=== PATIENT | male | born 1975 | race African-American/Black ===

== ENCOUNTER 2021-06-10 07:00 | Emergency (ER) | payer BC ==
[~2021-06-10] VITALS: Ht 188 cm; Wt 110.0 kg
--- NOTE | 2021-06-10 07:03 | PHYS DOC ---
Adult General HPI HPI Patient is a 45-year-old male who presents with epigastric abdominal pain, 7 out of 10, sharp and burning in nature, relatively constant that started last night and has kept him up all night. States he did take a heartburn medicine this morning as he does get heartburn. Denies any recent traumas, travels, illnesses , fevers, chest pain, shortness of breath, nausea, vomiting, diarrhea, dysuria, hematuria, blood in the stool. Denies any known ill contacts. Denies any alcohol or drug use. States he is making urine and stool normally for him. States he is been eating and drinking normally for him. Review of Systems Review of Systems Review of systems otherwise unremarkable except noted in HPI Physical Exam Physical Exam Constitutional: Well developed, well nourished, no acute distress, non-toxic appearance. [] HENT: Normocephalic, atraumatic, oropharynx moist, no oral exudates, nose normal. [] Eyes: conjunctiva normal, no discharge. [] Neck: Normal range of motion, no tenderness, supple, no stridor. [] Cardiovascular:Heart rate regular rhythm, no murmur [] Lungs & Thorax: Bilateral breath sounds clear to auscultation [] Abdomen: soft, epigastric tenderness, no rebound, no guarding, no masses, no pulsatile masses. [] Skin: Warm, dry, no erythema, no rash. [] Back: no CVA tenderness. [] Extremities: No tenderness, no cyanosis, no clubbing, ROM intact, no edema. [] Neurologic: Alert and oriented X 3, no focal deficits noted. [] Psychologic: Affect normal, judgement normal, mood normal. [] EKG EKG [] Radiology/Procedures Radiology/Procedures [] CT ABDOMEN+PELVIS WO History: Sharp epigastric pain this morning. Comparison: None. Technique: Noncontrast CT of the abdomen and pelvis. Findings: No airspace consolidation. There is a 3 mm left fissural nodule, likely benign fissural lymph node. There is a 1.7 cm hypodensity in the right hepatic lobe (axial image 31). The gallbladder, pancreas, spleen, adrenal glands, and kidneys are unremarkable. The bladder is decompressed. The prostate is within normal limits. The stomach, small bowel and appendix are within normal limits. Mild stool within the colon. Minimal colonic diverticula. No intra-abdominal free air or free fluid. No inflammatory fat stranding. Minimal atherosclerotic calcification in the aorta and iliac arteries. No abdominopelvic adenopathy. There is a left inguinal hernia which contains a small amount of fluid. This tracks through the internal os adjacent to a loop of small bowel however continuity is not identified. There is no proximal small bowel dilatation. Degenerative disc and facet disease at L4-L5 with bilateral neural foraminal narrowing. Partial sacralization of the L5 vertebral body with pseudoarticulation of the left transverse process and rudimentary L5-S1 disc. Impression: 1. No acute inflammatory findings in the abdomen and pelvis. 2. Indeterminate right hepatic 1.7 cm hypodensity, incompletely evaluated on noncontrast exam. Recommend hepatic MRI with contrast for further characterization. 3. Left inguinal hernia containing small amount of fluid. This is favored to represent peritoneal fluid, however this tracks closely to adjacent small bowel loops at the internal ring and the herniated small bowel loop which completely decompresses at the internal ring is thought to be less likely. No evidence of small bowel obstruction proximally. Correlate with symptoms. ------ Exposure: One or more of the following individualized dose reduction techniques were utilized for this examination: 1. Automated exposure control 2. Adjustment of the mA and/or kV according to patient size 3. Use of iterative reconstruction technique. Electronically signed by: Lloyd Ortiz MD (06/10/2021 8:04 AM) [id number] Heart Score C/O Chest Pain: No Risk Factors: Risk Factors: DM, Current or recent (<one month) smoker, HTN, HLP, family history of CAD, obesity. Risk Scores: Risk Factors: DM, Current or recent (<one month) smoker, HTN, HLP, family history of CAD, obesity. Course & Med Decision Making Course & Med Decision Making Patient is a 45-year-old male who presents with epigastric abdominal pain Vital signs not concerning. Physical exam noted above. Given GI cocktail. Laboratory analysis not concerning. Urinalysis not concerning. No acute findin gs on CT. On reassessment patient feeling much better and ready to be discharged home. Given work note for today as requested. Advised to follow-up this morning with his primary care physician to set up a follow-up appointment. Gave return precautions to the ED. Patient grateful, verbalized understanding and agreed with plan of discharge. Dragon Disclaimer Dragon Disclaimer This electronic medical record was generated, in whole or in part, using a voice recognition dictation system. Departure Departure: Impression: Primary Impression: Abdominal pain Disposition: HOME / SELF CARE / HOMELESS Condition: GOOD Referrals: PCP,NO (PCP) HOLLEY JERNIGAN MD Patient Instructions: Abdominal Pain (Nonspecific), Diet for Gastroesophageal Reflux Disease, Adult, Gastroesophageal Reflux Disease, Adult Additional Instructions: Thank you for coming into the emergency department today and allowing us to take care of you. Please read the attached information carefully to go back over some of the things we discussed. Over the next couple of days please eat a light clear diet. Please take your heartburn medicine daily. You are given contact information for local primary care physician to establish care as you are new in the area. Please be sure to drink plenty of fluids. PACO VILLELA MD Jun 10, 2021 07:03
[2021-06-10] MEDS ORDERED: LIDO:MAALOX 1:1 20 ML SINGLE DOSE. PO ONE (07:15)
--- NOTE | 2021-06-10 08:06 | RAD ---
CT ABDOMEN+PELVIS WO History: Sharp epigastric pain this morning. Comparison: None. Technique: Noncontrast CT of the abdomen and pelvis. Findings: No airspace consolidation. There is a 3 mm left fissural nodule, likely benign fissural lymph node. There is a 1.7 cm hypodensity in the right hepatic lobe (axial image 31). The gallbladder, pancreas, spleen, adrenal glands, and kidneys are unremarkable. The bladder is decompressed. The prostate is wi thin normal limits. The stomach, small bowel and appendix are within normal limits. Mild stool within the colon. Minimal colonic diverticula. No intra-abdominal free air or free fluid. No inflammatory fat stranding. Minima l atherosclerotic calcification in the aorta and iliac arteries. No abdominopelvic adenopathy. There is a left inguinal hernia which contains a small amount of fluid. This tracks through the inter nal os adjacent to a loop of small bowel however continuity is not identified. There is no proximal s mall bowel dilatation. Degenerative disc and facet disease at L4-L5 with bilateral neural foraminal n arrowing. Partial sacralization of the L5 vertebral body with pseudoarticulation of the left transver se process and rudimentary L5-S1 disc. Impression: 1. No acute inflammatory findings in the abdomen and pelvis. 2. Indeterminate right hepatic 1.7 cm hypodensity, incompletely evaluated on noncontrast exam. Recom mend hepatic MRI with contrast for further characterization. 3. Left inguinal hernia containing small amount of fluid. This is favored to represent peritoneal fl uid, however this tracks closely to adjacent small bowel loops at the internal ring and the herniated small bowel loop which completely decompresses at the internal ring is thought to be less likely. No evidence of small bowel obstruction proximally. Correlate with symptoms. ------ Exposure: One or more of the following individualized dose reduction techniques were utilized for thi s examination: 1. Automated exposure control 2. Adjustment of the mA and/or kV according to patient size 3. Use of iterative reconstruction technique. Electronically signed by: Lloyd Ortiz MD (06/10/2021 8:04 AM) [id number]
[2021-06-10] MEDS ORDERED: PANTOPRAZOLE 40 MG TABLET. PO ONE (08:15)
[2021-06-10] MEDS ORDERED: oxyCODONE/APAP 5/325 1 TAB TABLET PO ONE (08:15)
[2021-06-10 08:23] LABS: BASO % 1 % (0-3); EOS # 0.1 x10^3/uL (0.0-0.7); EOS % 1 % (0-3); HEMATOCRIT 42.7 % (39.0-53.0); HEMOGLOBIN 13.9 g/dL (13.0-17.5); LYMPH # 1.7 x10^3/uL (1.0-4.8); LYMPH % 27 % (24-48); MEAN CORPUSCULAR HEMOGLOBIN 31 pg (25-35); MEAN CORPUSCULAR HGB CONC 33 g/dL (31-37); MEAN CORPUSCULAR VOLUME 94 fL (79-100); MONO # 0.9 x10^3/uL (0.0-1.1); MONO % 15 % (0-9); NEUT # 3.6 x10^3uL (1.8-7.7); NEUT % 57 % (31-73); PLATELET COUNT 225 x10^3/uL (140-400); RED BLOOD COUNT 4.53 x10^6/uL (4.30-5.70); RED CELL DISTRIBUTION WIDTH 13.6 % (11.5-14.5); WHITE BLOOD COUNT 6.3 x10^3/uL (4.0-11.0)
[2021-06-10 08:33] LABS: CALCIUM 8.8 mg/dL (8.5-10.1); CREATININE 0.8 mg/dL (0.7-1.3); GFR 126.5; POTASSIUM 4.6 mmol/L (3.5-5.1)
[2021-06-10 08:37] LABS: ALBUMIN 3.8 g/dL (3.4-5.0); ALBUMIN/GLOBULIN RATIO 1.3 (1.0-1.7); TOTAL BILIRUBIN 0.3 mg/dL (0.2-1.0); TOTAL PROTEIN 6.8 g/dL (6.4-8.2)
[2021-06-10 08:45] LABS: BILIRUBIN,URINE NEG (NEG); CLARITY,URINE CLEAR; COLOR,URINE YELLOW; GLUCOSE,URINE NEG (NEG); NITRITE,URINE NEG (NEG)
[2021-06-10 08:46] LABS: BACTERIA,URINE 0 /HPF (0-FEW); SQUAMOUS EPITHELIAL CELL,UR MOD /LPF
[2021-06-10 08:55] VITALS: BP 120/78
--- NOTE | 2021-06-10 18:51 | EKG ---
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
== END 2021-06-10 09:05 | disposition home or self-care (01) ==
LOC: ER 07:00
DX: R10.13 Epigastric pain (principal)
CPT/HCPCS: 36415; 74176; 80053; 81001; 83690; 84484; 85025; 87086; 93005; 99285-25